=== PATIENT | female | born 1965 | race American Indian/Alaskan Native ===

== ENCOUNTER 2019-06-11 17:01 | Emergency (ER) | payer MEDICARE ==
[2019-06-11 17:21] VITALS: BP 140/93
--- NOTE | 2019-06-11 18:21 | Event Note ---
ED Screening Note Date of service: 06/11/19 Time: 18:12 ED Screening Note: 53 y/o female comes in for abdomen pain since 03/13. Has hx/o chronic anemia and gets iron infusions. She saw bright red blood from rectum times 2 day. History of rectalcele This initial assessment/diagnostic orders/clinical plan/treatment(s) is/are subject to change based on patients health status, clinical progression and re- assessment by fellow clinical providers in the ED. Further treatment and workup at subsequent clinical providers discretion. Patient/guardian urged not to elope from the ED as their condition may be serious if not clinically assessed and managed. Initial orders include:
== END 2019-06-11 20:55 | disposition left against medical advice (07) ==
LOC: ED 17:01
DX: R51 Headache (principal); R10.9 Unspecified abdominal pain; R19.7 Diarrhea, unspecified; Z53.21 Procedure and treatment not carried out due to patient leaving prior to being seen by health care provider

== ENCOUNTER 2019-10-28 17:48 | Outpatient (CLI) | payer MEDICARE ==
[2019-10-28 18:10] LABS: Hematocrit 22.1 % (30.3-42.9); Hemoglobin 6.4 gm/dl (10.1-14.3); Mean Corpuscular HGB Conc 29 % (30-34); Platelet Count 354 K/mm3 (140-440); Red Blood Count 3.57 M/mm3 (3.65-5.03)
[2019-10-28 18:27] LABS: Mean Corpuscular Volume 62 fl (79-97); Red Cell Distribution Width 20.2 % (13.2-15.2)
== END 2019-10-28 17:49 | disposition home or self-care (01) ==
LOC: LAB 17:48
PROVIDERS: ATTEND Internal Medicine
DX: R53.83 Other fatigue (principal); K21.9 Gastro-esophageal reflux disease without esophagitis; M06.9 Rheumatoid arthritis, unspecified; F17.200 Nicotine dependence, unspecified, uncomplicated
CPT/HCPCS: 36415; 85027

== ENCOUNTER 2020-06-16 16:43 | Outpatient (CLI) | payer MEDICARE ==
[2020-06-16 17:12] LABS: Mean Corpuscular HGB Conc 27 % (30-34); Platelet Count 479 K/mm3 (140-440); Red Blood Count 4.72 M/mm3 (3.65-5.03)
[2020-06-16 17:13] LABS: Hematocrit 24.6 % (30.3-42.9); Hemoglobin 6.7 gm/dl (10.1-14.3); Mean Corpuscular Volume 52 fl (79-97); Red Cell Distribution Width 20.9 % (13.2-15.2)
[2020-06-16 17:36] LABS: Alanine Aminotransferase 8 units/L (7-56); Albumin 4.1 g/dL (3.9-5); BUN/Creatinine Ratio 11; Blood Urea Nitrogen 8 mg/dL (7-17); Calcium 9.3 mg/dL (8.4-10.2); Hemolysis Index 0
== END 2020-06-16 16:44 | disposition home or self-care (01) ==
LOC: LAB 16:43
PROVIDERS: ATTEND Internal Medicine
DX: R53.83 Other fatigue (principal)
CPT/HCPCS: 36415; 80053; 84443; 85027

== ENCOUNTER 2021-07-09 13:30 | Emergency (ER) | payer MEDICARE ==
[2021-07-09 15:39] VITALS: BP 129/73
--- NOTE | 2021-07-09 16:15 | Emergency Department Report ---
ED Abdominal Pain HPI - General Chief Complaint: Abdominal Pain Stated Complaint: SEVERE ABD PAIN/NUMBNESS IN ARMS/LEGS Time Seen by Provider: 07/09/21 15:36 Source: patient Mode of arrival: Wheelchair Limitations: No Limitations - History of Present Illness Initial Comments: Patient comes in complaining of severe abdominal pain for the last week that is progressively worsened. Her doctor took her off of hydrocodone and placed her on tramadol. She reports that she has been crushing up her tramadol because she cannot swallow pills. Subsequent to that, she states that it has bothered her GERD and gastritis. She states that she is having severe abdominal pain in the epigastric area and "all over." She describes it as a stabbing pain. There are no specific aggravating or alleviating factors. She does admit that she has tingling in her hands and feet that also started a week ago. Patient is requesting liquid medication for her pain. She did use Zofran ODT prior to arrival. Severity scale (0 -10): 10 - Related Data Home Medications Medication Instructions Recorded Confirmed Last Taken HYDROcodone/APAP 10-325 [[place] 10 each PO Q6HR PRN 05/28/16 05/28/16 1 Day Ago 10/325] ~05/27/16 10 Previous Rx's Medication Instructions Recorded Last Taken Type Sucralfate [Carafate] 1 gm PO ACHS #240 ml 05/29/16 Unknown Rx Hyoscyamine Subl [Levsin Sl 0.125 0.125 mg SL Q4HR PRN #20 tablet 07/09/21 Unknown Rx TAB] Allergies Allergy/AdvReac Type Severity Reaction Status Date / Time cephalexin Allergy Unknown Verified 06/11/19 17:13 latex Allergy Swelling Verified 06/11/19 17:13 Penicillins Allergy Swelling Verified 06/11/19 17:13 shellfish derived Allergy Swelling Verified 06/11/19 17:13 ED Review of Systems ROS: Stated complaint: SEVERE ABD PAIN/NUMBNESS IN ARMS/LEGS Other details as noted in HPI Comment: All other systems reviewed and negative Constitutional: denies: fever Eyes: denies: eye pain ENT: denies: throat pain Respiratory: denies: cough Cardiovascular: denies: chest pain Gastrointestinal: as per HPI Genitourinary: denies: dysuria Musculoskeletal: denies: back pain Skin: denies: rash Neurological: denies: headache Hematological/Lymphatic: denies: easy bruising ED Past Medical Hx - Past Medical History Hx Congestive Heart Failure: No Hx Diabetes: No Hx GERD: Yes Hx Arthritis: Yes (RA) Hx Asthma: No Hx COPD: No Hx HIV: No Additional medical history: blood transfusion, - Surgical History Past Surgical History?: No Additional Surgical History: tubal ligation, breast biopsy, hernia repair - Family History Family history: no significant - Social History Smoking Status: Unknown if ever smoked - Medications Home Medications: Home Medications Medication Instructions Recorded Confirmed Last Taken Type HYDROcodone/APAP 10-325 [[place] 10 each PO Q6HR PRN 05/28/16 05/28/16 1 Day Ago History 10/325] ~05/27/16 10 Sucralfate [Carafate] 1 gm PO ACHS #240 ml 05/29/16 Unknown Rx Hyoscyamine Subl [Levsin Sl 0.125 0.125 mg SL Q4HR PRN #20 tablet 07/09/21 Unknown Rx TAB] ED Physical Exam - General Limitations: No Limitations General appearance: alert, in no apparent distress, other (Appears uncomfortable) - Head Head exam: Present: atraumatic, normocephalic, normal inspection - Eye Eye exam: Present: normal appearance, EOMI. Absent: scleral icterus - ENT ENT exam: Present: normal exam, normal orophraynx, mucous membranes moist - Neck Neck exam: Present: normal inspection. Absent: meningismus - Respiratory Respiratory exam: Present: normal lung sounds bilaterally. Absent: respiratory distress - Cardiovascular Cardiovascular Exam: Present: regular rate. Absent: normal rhythm - GI/Abdominal GI/Abdominal exam: Present: soft, tenderness (Diffuse without rebound or guarding). Absent: distended (No tympany), pulsatile mass - Extremities Exam Extremities exam: Present: normal inspection, normal capillary refill - Back Exam Back exam: Absent: CVA tenderness (R), CVA tenderness (L) - Neurological Exam Neurological exam: Present: alert, oriented X3, normal gait. Absent: motor sensory deficit - Psychiatric Psychiatric exam: Present: normal affect, normal mood - Skin Skin exam: Present: warm, dry ED Course Vital Signs 07/09/21 15:35 Temperature 98.2 F Pulse Rate 79 Respiratory 18 Rate Blood Pressure 129/73 O2 Sat by Pulse 99 Oximetry - Reevaluation(s) Reevaluation #1: 09/14/21 16:13 Patient was seen as above. We have prescribed other medications and had her follow-up with her regular doctor. ED Medical Decision Making - Medical Decision Making Patient presents with reports of abdominal pain after crushing up her tramadol to swallow it. She certainly has no peritoneal findings. There is no distention or tympany to suggest bowel obstruction. She does not have intractable vomiting or significant epigastric pain or tenderness though suggest acute pancreatitis. She is not jaundiced. I am not concerned this represents hepatitis. She does not have pulsatile mass suggestive of AAA. I do not believe this represents referred pain from a cardiac source. She has no chest pain and her symptoms are not exertional. She was requesting Carafate. This is been provided and she was discharged. Critical Care Time: No Critical care attestation.: If time is entered above; I have spent that time in minutes in the direct care of this critically ill patient, excluding procedure time. ED Disposition Clinical Impression: Epigastric pain, Paresthesia and pain of both upper extremities Disposition: 01 HOME / SELF CARE / HOMELESS Is pt being admited?: No Does the pt Need Aspirin: No Condition: Stable Instructions: Abdominal Pain (ED), Paresthesia, Abdominal Pain, Adult Additional Instructions: Have a bland diet. Stop taking tramadol. Follow-up with your regular doctor for recheck and pain management. Prescriptions: Hyoscyamine Subl [Levsin Sl 0.125 TAB] 0.125 mg SL Q4HR PRN #20 tablet PRN Reason: Spasms
== END 2021-07-09 16:58 | disposition home or self-care (01) ==
LOC: ED 13:30
DX: R10.13 Epigastric pain (principal); R20.2 Paresthesia of skin; K21.9 Gastro-esophageal reflux disease without esophagitis; M19.90 Unspecified osteoarthritis, unspecified site; Z98.890 Other specified postprocedural states; Z88.0 Allergy status to penicillin; Z88.1 Allergy status to other antibiotic agents; Z91.013 Allergy to seafood; Z91.040 Latex allergy status
CPT/HCPCS: 99282

== ENCOUNTER 2021-07-12 11:08 | Observation (INO) | payer MEDICARE ==
[2021-07-12] MEDS ORDERED: HYDROmorphone 1 MG/1 ML INJ IV PRN (11:20)
[2021-07-12] MEDS ORDERED: ACETAMINOPHEN 325 MG TAB PO PRN ×2 (11:20→18:29)
[2021-07-12] MEDS ORDERED: oxyCODONE /ACETAMINOPHEN 5-325MG TAB PO PRN (11:20)
--- NOTE | 2021-07-12 12:29 | History and Physical Report ---
History of Present Illness Date of admission: 07/12/21 12:03 Chief complaint: My doctor sent me here History of present illness: 55 YO Female with RA, Anemia Chronic Disease, GERD, PUD admitted directly at the request of Dr. Partida. Patient was seen and evaluated in her primary care physician's office today. Patient underwent routine CBC and was found to have a hemoglobin of 6. Patient was instructed to seek further care at [facility] for further care and evaluation. Patient transported to [facility] via private vehicle and admitted directly to the medical floor. Patient has fever, chills, chest pain, palpitation, productive cough, skin rash, recent ill contact, dark or melanotic stool, recent ill contacts, known exposure to COVID-19. Past History Past Surgical History: No surgical history, Other (Reviewed) Social history: single. denies: smoking, alcohol abuse, prescription drug abuse Family history: diabetes, hypertension Medications and Allergies Allergies Allergy/AdvReac Type Severity Reaction Status Date / Time cephalexin Allergy Unknown Verified 07/12/21 12:17 latex Allergy Swelling Verified 07/12/21 12:17 Penicillins Allergy Swelling Verified 07/12/21 12:17 shellfish derived Allergy Swelling Verified 07/12/21 12:17 Home Medications Medication Instructions Recorded Confirmed Last Taken Type HYDROcodone/APAP 10-325 [[place] 10 each PO Q6HR PRN 05/28/16 07/12/21 1 Day Ago History 10/325] ~05/27/16 10 Hyoscyamine Subl [Levsin Sl 0.125 0.125 mg SL Q4HR PRN #20 tablet 07/09/21 Unknown Rx TAB] Sucralfate [Carafate] 1 gm PO ACHS 07/12/21 07/12/21 Unknown History Active Meds: Active Medications Acetaminophen (Acetaminophen 325 Mg Tab) 650 mg PO Q6H PRN PRN Reason: Pain MILD(1-3)/Fever >100.5/HUERTAS Hydromorphone HCl (Hydromorphone 1 Mg/1 Ml Inj) 0.5 mg IV Q24H PRN PRN Reason: Pain , Severe (7-10) Oxycodone/Acetaminophen (Oxycodone /Acetaminophen 5-325mg Tab) 1 tab PO Q12H PRN PRN Reason: Pain, Moderate (4-6) Sodium Chloride (Sodium Chloride 0.9% 10 Ml Flush Syringe) 10 ml IV BID DOMO Sodium Chloride (Sodium Chloride 0.9% 10 Ml Flush Syringe) 10 ml IV PRN PRN PRN Reason: LINE FLUSH Review of Systems Constitutional: weakness, no weight loss, no weight gain, no fever, no chills Ears, nose, mouth and throat: no ear pain, no ear discharge, no tinnitis, no decreased hearing, no nose pain Breasts: no change in shape, no swelling, no mass Cardiovascular: no orthopnea, no rapid/irregular heart beat, no lightheadedness Respiratory: no cough, no hemoptysis, no shortness of breath, no dyspnea on exertion Gastrointestinal: no abdominal pain, no nausea, no diarrhea, no change in bowel habits, no coffee ground emesis, no BRBPR, no melena, no early satiety, no heartburn, no indigestion Genitourinary Female: no pelvic pain, no flank pain, no dysuria, no urgency Rectal: no pain, no incontinence, no bleeding Musculoskeletal: no neck stiffness, no neck pain, no low back pain, no shooting leg pain, no leg numbness/tingling Integumentary: no rash, no redness, no sores, no blisters Neurological: no head injury, no transient paralysis, no weakness, no parathesias, no numbness, no seizures, no syncope, no ataxia Psychiatric: no anxiety, no change in sleep habits, no sleep disturbances, no change in appetite, no change in libido Endocrine: no cold intolerance, no heat intolerance, no excessive thirst, no polydipsia, no nocturia, no excessive sweating Hematologic/Lymphatic: no easy bruising, no easy bleeding, no lymphadenopathy Allergic/Immunologic: no anaphylaxis, no angioedema Exam - Constitutional General appearance: Present: mild distress - EENT Eyes: Present: PERRL (Conjunctival pallor) ENT: hearing intact, clear oral mucosa - Neck Neck: Present: supple, normal ROM - Respiratory Respiratory effort: normal Respiratory: bilateral: CTA - Cardiovascular Heart Sounds: Present: S1 & S2. Absent: rub, click - Extremities Extremities: pulses symmetrical, No edema Peripheral Pulses: within normal limits - Abdominal General gastrointestinal: Present: soft, non-tender, non-distended, normal bowel sounds Female genitourinary: Present: normal - Integumentary Integumentary: Present: clear, warm, dry - Musculoskeletal Musculoskeletal: gait normal, strength equal bilaterally - Psychiatric Psychiatric: appropriate mood/affect, intact judgment & insight - Neurologic Neurologic: CNII-XII intact, moves all extremities Assessment and Plan - Patient Problems (1) Anemia of chronic disease Current Visit: Yes Status: Acute Plan to address problem: Blood cell transfusion, supportive care, (2) Peptic ulcer disease Current Visit: Yes Status: Acute Plan to address problem: PPI therapy, Carafate, supportive care, outpatient GI follow-up (3) DVT prophylaxis Current Visit: No Status: Acute Plan to address problem: SCD to bilateral lower extremities while in bed, patient is ambulatory
[2021-07-12] MEDS ORDERED: HYOSCYAMINE SUBL 0.125 MG TAB SL PRN (18:28)
[2021-07-12] MEDS ORDERED: SODIUM CHLORIDE 0.9% 500 ML 500 ML IV ONE (18:28)
[2021-07-12] MEDS ORDERED: ALBUTEROL 2.5 MG/3 ML NEBU IH PRN (18:29)
[2021-07-12] MEDS ORDERED: ONDANSETRON 4 MG/2 ML INJ IV PRN (18:29)
[2021-07-12] MEDS ORDERED: MAGNESIUM HYDROXIDE (MOM) ORAL LIQD UDC PO PRN (20:38)
[2021-07-12] MEDS ORDERED: PANTOPRAZOLE 40 MG INJ IV SCH (21:00)
[2021-07-12] MEDS: SUCRALFATE 1 GM/10 ML ORAL LIQD PO SCH (22:00)
[2021-07-12] MEDS: HYDROcodone/ACETAMINOPHEN 10-325MG TAB PO PRN (22:42)
[2021-07-13] MEDS ORDERED: SODIUM CHLORIDE 0.9% 500 ML 500 ML IV ONE (01:00)
[2021-07-13] MEDS: SUCRALFATE 1 GM/10 ML ORAL LIQD PO SCH ×2 (07:00→14:29)
[2021-07-13] MEDS: HYDROcodone/ACETAMINOPHEN 10-325MG TAB PO PRN (07:00)
[2021-07-13] MEDS ORDERED: PANTOPRAZOLE 40 MG TAB PO SCH (09:00)
[2021-07-13 09:56] LABS: Hematocrit 31.3 % (30.3-42.9); Hemoglobin 9.5 gm/dl (10.1-14.3); Mean Corpuscular HGB Conc 30 % (30-34); Red Blood Count 4.75 M/mm3 (3.65-5.03)
[2021-07-13 10:00] LABS: Mean Corpuscular Volume 66 fl (79-97); Red Cell Distribution Width 31.8 % (13.2-15.2)
[2021-07-13 10:05] LABS: Platelet Count 267 K/mm3 (140-440)
--- NOTE | 2021-07-13 11:51 | Discharge Summary ---
Providers - Providers Date of Admission: 07/12/21 12:03 Date of discharge: 07/13/21 Attending physician: SHARATH STALEY MD 07/12/21 14:09 Consult to Dietitian/Nutrition [CONS] Routine Physician Instructions: Reason For Exam: Reason for Consult: Pt needs oral supplement Primary care physician: THEODORE MELO Hospitalization Reason for admission: Acute on chronic anemia Condition: Stable Procedures: Blood transfusion Hospital course: 55 year-old lady with history of ulcerative colitis, peptic ulcer disease, chronic anemia, and fibromyalgia who presented after PCP visit for treatment of acute anemia. Reported hemoglobin in outpatient setting was 6.3. She was admitted and received 1 unit of packed red blood cells. Repeat hemoglobin was 9.5. Disposition: 01 HOME / SELF CARE / HOMELESS Final Discharge Diagnosis (Prints w/discharge instructions): Acute on chronic anemia. Peptic ulcer disease Time spent for discharge: 20 minutes Core Measure Documentation - Palliative Care Palliative Care/ Comfort Measures: Not Applicable - Core Measures Any of the following diagnoses?: none - VTE Discharge Requirements Deep Vein Thrombosis/Pulmonary Embolism Present on Admission: No Has pt received <5 days of overlap therapy or INR<2.0: No Anticoagulant overlap therapy prescribed at discharge: No Contraindication No Overlap Therapy order at DC: Not Indicated - Acute [place] Discharge Requirements Aspirin at discharge: No Reason for no aspirin on DC: Patient refusal (Not indicated) RENATE/ARB for LVSD if EF <40%: Not Applicable Beta aki at discharge: No Reason for no beta aki on DC: Patient refusal (Not indicated) Statin for LDL = or >100 mg/dl on DC: Not Applicable - Heart Failure Discharge Requirements RENATE/ARB for LVSD if EF <40%: Not Applicable Beta aki at discharge: No Reason for no beta aki on DC: Patient refusal (Not indicated) - Stroke Discharge Requirements Statin for LDL = or >70 mg/dl on DC: Not Applicable Reason for no statin on DC: Not Indicated Anticoag for atrial fib/atrial flutter: Not Applicable Reason for no anticoag for AF/F on DC: Not Indicated Antithrombotic for ischemic stroke: No Reason for no antithrombotic on DC: Not Indicated Exam - Physical Exam Narrative exam: GENERAL: Thin woman. Lying in bed in no acute distress. HEENT: Normocephalic. Atraumatic. CHEST/LUNGS: CTAB on room air HEART/CARDIOVASCULAR: RRR. No murmur, rubs or gallops appreciated. ABDOMEN: +BS. NT/ND. NEURO: No focal motor deficit. Follows all commands. MUSCULOSKELETAL: No joint effusion EXTREMITIES: No cyanosis, clubbing or edema. PSYCH: Cooperative. - Constitutional Vitals: Temp Pulse Resp BP Pulse Ox 97.7 F 75 18 110/68 99 07/13/21 08:07/13/21 08:07/13/21 08:07/13/21 08:07/13/21 09:53 Plan Assessment: Anemia improved after transfusion, Hgb 9.5. No acute signs of bleeding. Follow up with: THEODORE MELO MD [Primary Care Provider] - 7 Days Prescriptions: HYDROcodone/APAP 10-325 [[place] 10-325 mg TAB] 10 each PO Q6HR PRN 3 Days #12 tab PRN Reason: Pain
[2021-07-13 12:29] VITALS: BP 114/69
[2021-07-13] MEDS ORDERED: MAGNESIUM HYDROXIDE (MOM) ORAL LIQD UDC PO SCH (14:26)
== END 2021-07-13 18:00 | disposition home or self-care (01) ==
LOC: 3A 11:08 → UNDOADMOB 11:08 → 3A 12:03
PROVIDERS: ADMIT Internal Medicine; ATTEND Student in an Organized Health Care Education/Training Program
DX: D64.9 Anemia, unspecified (principal); K27.9 Peptic ulcer, site unspecified, unspecified as acute or chronic, without hemorrhage or perforation
CPT/HCPCS: 36415; 36430; 85014; 85018; 85027; 86850; 86900; 86901; 86920; 87641; 96374; 96375; C9113; G0378; G0379; J1170; J7040; P9016

== ENCOUNTER 2021-12-27 09:05 | Emergency (ER) | payer MEDICARE ==
[2021-12-27 09:20] VITALS: BP 123/82
[2021-12-27] MEDS ORDERED: ONDANSETRON 4 MG ODT TAB PO ONE (10:32)
[2021-12-27] MEDS ORDERED: BUTALB/ACETAMINOPHEN/CAFFEINE TAB PO ONE (10:33)
[2021-12-27 11:25] LABS: Hematocrit 23.4 % (30.3-42.9); Hemoglobin 7.1 gm/dl (10.1-14.3); Mean Corpuscular HGB Conc 30 % (30-34); Platelet Count 518 K/mm3 (140-440); Red Blood Count 4.14 M/mm3 (3.65-5.03)
[2021-12-27 11:26] LABS: Mean Corpuscular Volume 57 fl (79-97); Red Cell Distribution Width 21.6 % (13.2-15.2)
[2021-12-27] MEDS ORDERED: SODIUM CHLORIDE 0.9% 500 ML 500 ML IV ONE (11:39)
[2021-12-27] MEDS ORDERED: diphenhydrAMINE 25 MG CAP PO ONE (14:05)
[2021-12-27] MEDS ORDERED: KETOROLAC 10 MG TAB PO ONE (14:05)
[2021-12-27] MEDS ORDERED: DEXAMETHASONE 4 MG TAB PO ONE (14:05)
[2021-12-27] MEDS ORDERED: METOCLOPRAMIDE 10 MG TAB PO ONE (14:06)
--- NOTE | 2021-12-27 14:08 | Emergency Department Report ---
ED Headache HPI - General Chief Complaint: Headache Stated Complaint: LOW BLD/MIRGAINE/NAUSEA Time Seen by Provider: 12/27/21 10:31 - History of Present Illness Initial Comments: 56-year-old female with a past medical history of rheumatoid arthritis, GERD, and neuropathies presents to the emergency department for evaluation headache that started last night with nausea, vomiting, dizziness, and photophobia. She states that she is also having active rectal bleeding. She states that she has a history of rectal bleeding and every time she goes to the bathroom blood is pouring out of her and she believes that her blood count is low and that is the reason she is having such a bad headache. She denies abdominal pain. Timing/Duration: constant Quality: severe Recent Head Trauma: no recent headache/trauma Associated Symptoms: facial pain, nausea/vomiting. denies: confusion, fatigue, fever/chills, flushing, loss of consciousness, nasal congestion, nasal drainage, numbness in legs/feet, rash, seizures, sinus infection, stiff neck, vision changes, weakness Allergies/Adverse Reactions: Allergies cephalexin Allergy (Verified 07/12/21 12:17) Unknown latex Allergy (Verified 07/12/21 12:17) Swelling Penicillins Allergy (Verified 07/12/21 12:17) Swelling shellfish derived Allergy (Verified 07/12/21 12:17) Swelling Home Medications: Ambulatory Orders HYDROcodone/APAP 10-325 [[place] 10-325 mg TAB] 10 each PO Q6HR PRN 3 Days #12 tab 07/13/21 Butalb/Acetaminophen/Caffeine [Fioricet 50-300-40 mg CAP] 1 cap PO Q6HR PRN #15 cap 12/27/21 Metoclopramide [Reglan] 10 mg PO TID PRN #15 tab 12/27/21 ED Review of Systems ROS: Stated complaint: LOW BLD/MIRGAINE/NAUSEA Other details as noted in HPI Comment: All other systems reviewed and negative Constitutional: denies: chills, diaphoresis, fever, malaise, weakness Eyes: eye pain. denies: eye discharge, vision change ENT: denies: ear pain, throat pain Respiratory: denies: cough, orthopnea, shortness of breath, SOB with exertion, SOB at rest Cardiovascular: denies: chest pain, palpitations, dyspnea on exertion Endocrine: no symptoms reported Gastrointestinal: nausea, hematochezia. denies: abdominal pain, vomiting, diarrhea, constipation, hematemesis, melena Genitourinary: denies: urgency, dysuria, frequency, hematuria, discharge Musculoskeletal: denies: back pain Skin: denies: rash, lesions, change in color, change in hair/nails, pruritus Neurological: headache. denies: weakness, numbness, paresthesias, confusion, abnormal gait Psychiatric: denies: depression Hematological/Lymphatic: denies: easy bleeding, easy bruising ED Past Medical Hx - Past Medical History Hx Congestive Heart Failure: No Hx Diabetes: No Hx GERD: Yes Hx Arthritis: Yes (RA) Hx Asthma: No Hx COPD: No Hx HIV: No Additional medical history: blood transfusion, - Surgical History Additional Surgical History: tubal ligation, breast biopsy, hernia repair - Social History Smoking Status: Former Smoker - Medications Home Medications: Home Medications Medication Instructions Recorded Confirmed Last Taken Type HYDROcodone/APAP 10-325 [[place] 10 each PO Q6HR PRN 3 Days #12 tab 07/13/21 Unknown Rx 10-325 mg TAB] Butalb/Acetaminophen/Caffeine 1 cap PO Q6HR PRN #15 cap 12/27/21 Unknown Rx [Fioricet 50-300-40 mg CAP] Metoclopramide [Reglan] 10 mg PO TID PRN #15 tab 12/27/21 Unknown Rx ED Physical Exam - General Limitations: No Limitations General appearance: alert, in no apparent distress - Head Head exam: Present: atraumatic, normocephalic - Eye Eye exam: Present: normal appearance. Absent: conjunctival injection - ENT ENT exam: Present: other (Noted to have edema to bilateral nasal mucosal along with tenderness to frontal and maxillary sinus areas) - Expanded ENT Exam Expanded Throat exam: Negative: tonsillar erythema, tonsillar exudate - Neck Neck exam: Present: normal inspection. Absent: tenderness, lymphadenopathy - Respiratory Respiratory exam: Present: normal lung sounds bilaterally. Absent: respiratory distress, wheezes, rales, rhonchi, chest wall tenderness, accessory muscle use, decreased breath sounds - Cardiovascular Cardiovascular Exam: Present: regular rate, normal heart sounds - GI/Abdominal GI/Abdominal exam: Present: soft, normal bowel sounds. Absent: distended, tenderness, guarding, rebound, rigid - Rectal Rectal exam: Present: normal inspection, heme (-) stool, tenderness. Absent: hemorrhoids - Extremities Exam Extremities exam: Present: normal inspection - Back Exam Back exam: Present: normal inspection. Absent: tenderness, CVA tenderness (R), CVA tenderness (L) - Neurological Exam Neurological exam: Present: alert, oriented X3 - Psychiatric Psychiatric exam: Present: normal affect, normal mood - Skin Skin exam: Present: warm, dry, intact, normal color ED Course Vital Signs 12/27/21 09:16 Temperature 98.4 F Pulse Rate 93 H Respiratory 18 Rate Blood Pressure 123/82 [Right] O2 Sat by Pulse 99 Oximetry ED Medical Decision Making - Lab Data Result diagrams: 12/27/21 10:55 - Medical Decision Making 56-year-old female with a past medical history of rheumatoid arthritis, GERD, and neuropathies presents to the emergency department for evaluation headache that started last night with nausea, vomiting, dizziness, and photophobia. She states that she is also having active rectal bleeding. She states that she has a history of rectal bleeding and every time she goes to the bathroom blood is pouring out of her and she believes that her blood count is low and that is the reason she is having such a bad headache. She denies abdominal pain. Patient noted to have hemoglobin and hematocrit of 7 and 23. Noted from her previous admission in June 2021, patient had a hemoglobin of 6.7 and 24.3 for which she had 1 unit of packed cells and was discharged home. Case was d iscussed with Dr. Feliciano from [facility] who stated that he was okay with patient having 1 unit of packed cells while in the emergency department and being discharged home to follow-up in the office. Plan of care was reviewed with patient, and she stated that her blood count was higher than she anticipated and she is not going to take the unit of blood but will follow up with her GI doctor as planned in the next week or 2. Headache and nausea were resolved after medication, and patient will be sent home with nausea and headache medication to take as needed. She was advised to follow-up with GI as planned or primary care provider for further evaluation. No acute distress noted. Critical care attestation.: If time is entered above; I have spent that time in minutes in the direct care of this critically ill patient, excluding procedure time. ED Disposition Clinical Impression: Low hemoglobin Headache Qualifiers: Headache type: unspecified Headache chronicity pattern: acute headache Intractability: not intractable Qualified Code(s): R51.9 - Headache, unspecified Disposition: 01 HOME / SELF CARE / HOMELESS Is pt being admited?: No Does the pt Need Aspirin: No Condition: Stable Instructions: General Headache Without Cause Additional Instructions: Take medication as prescribed. Follow-up with your GI doctor. Return to the emergency department for worsening symptoms. Prescriptions: Butalb/Acetaminophen/Caffeine [Fioricet 50-300-40 mg CAP] 1 cap PO Q6HR PRN #15 cap PRN Reason: Headache Metoclopramide [Reglan] 10 mg PO TID PRN #15 tab PRN Reason: Nausea Referrals: THEODORE MELO MD [Primary Care Provider] - 3-5 Days EMILIANO FELICIANO MD [Staff Physician] - 3-5 Days Time of Disposition: 14:22 ED GI Bleed EXAM - General Limitations: No Limitations - Head Head exam: Positive: atraumatic - Eye Eye exam: normal appearance
== END 2021-12-27 15:11 | disposition home or self-care (01) ==
LOC: ED 09:05
DX: R51.9 Headache, unspecified (principal); D64.9 Anemia, unspecified; K21.9 Gastro-esophageal reflux disease without esophagitis; M19.90 Unspecified osteoarthritis, unspecified site; Z87.891 Personal history of nicotine dependence; Z88.1 Allergy status to other antibiotic agents; Z88.0 Allergy status to penicillin; Z91.040 Latex allergy status; Z91.013 Allergy to seafood; Z79.899 Other long term (current) drug therapy
CPT/HCPCS: 36415; 82271; 85027; 99283; J8540; J3490; Q0162

== ENCOUNTER 2022-05-13 14:16 | Emergency (ER) | payer MEDICARE ==
[2022-05-13 14:28] VITALS: BP 121/63
--- NOTE | 2022-05-13 16:14 | Event Note ---
ED Screening Note ED Screening Note: a/c vag bleed sent pt to ER for Hbg < 6 endorses weakness and sob This initial assessment/diagnostic orders/clinical plan/treatment(s) is/are subject to change based on patients health status, clinical progression and re- assessment by fellow clinical providers in the ED. Further treatment and workup at subsequent clinical providers discretion. Patient/guardian urged not to elope from the ED as their condition may be serious if not clinically assessed and managed. Initial orders include: ekg labs ua likely transfusion
[2022-05-13 17:03] LABS: Mean Corpuscular HGB Conc 26 % (30-34); Platelet Count 525 K/mm3 (140-440); Red Blood Count 4.45 M/mm3 (3.65-5.03)
[2022-05-13 17:25] LABS: Hematocrit 23.1 % (30.3-42.9); Mean Corpuscular Volume 52 fl (79-97)
[2022-05-13 17:26] LABS: Hemoglobin 5.9 gm/dl (10.1-14.3)
[2022-05-13 17:28] LABS: Alanine Aminotransferase 6 units/L (7-56); Albumin 4.5 g/dL (3.9-5); Blood Urea Nitrogen 6 mg/dL (7-17); Calcium 9.2 mg/dL (8.4-10.2); Hemolysis Index 4
[2022-05-13 17:33] LABS: BUN/Creatinine Ratio 9
[2022-05-13 19:20] LABS: Basophils % (Manual) 0 % (0.0-1.8); Total Cells Counted 100
[2022-05-13 19:21] LABS: Anisocytosis 2+; Hypochromasia 3+; Spherocytes 1+; Tear Drop Cells 1+
[2022-05-13 19:22] LABS: Macrocytosis 1+; Platelet Estimate Consistent w Auto; Poikilocytosis 1+
[2022-05-13] MEDS ORDERED: SODIUM CHLORIDE 0.9% 500 ML 500 ML IV ONE (19:32)
--- NOTE | 2022-05-15 13:36 | Electrocardiograph Report ---
[facility] Test Date: 2022-05-13 Test Time: 14:33:24 Pat Name: HANNAH SONG Department: Room: Gender: F Chemical Dependency Nurse: DONI : 1965 Requested By: MORE REECE Order Number: [id number] Reading MD: Stone Hassan Measurements Intervals [place] Rate: 80 P: 53 KS: 162 QRS: 13 QRSD: 75 T: 59 QT: 364 QTc: 419 Interpretive Statements Sinus rhythm No previous ECG available for comparison Electronically Signed On 05-15-2022 13:35:55 EDT by Stone Hassan
== END 2022-05-13 20:54 | disposition left against medical advice (07) ==
LOC: ED 14:16
DX: D72.819 Decreased white blood cell count, unspecified (principal); Z53.21 Procedure and treatment not carried out due to patient leaving prior to being seen by health care provider
CPT/HCPCS: 36415; 80053; 84484; 85007; 85025; 86850; 86900; 86901; 86920; 93005